=== PATIENT | female | born 1970 | race Caucasian/White ===

== ENCOUNTER 2019-11-14 14:00 | Outpatient (RCR) | payer OTHER, SELFPAY ==
--- NOTE | 2019-10-18 09:18 | PTOPEVAL ---
PHYSICAL THERAPY EVALUATION AND PLAN OF CARE 10-18-2019 The PT evaluation was completed for the diagnosis of low back pain, radicular into R LE. Her plan of treatment is for 2x/week for 2 weeks. Thank you for referring Mrs. Astorga to [facility]. Please review, sign, date and return this plan of care SANA. I agree with and certify that the following plan of care is medically necessary. Referring Physician Date Referring Provider: Dr. Ed Friedman *PT Outpatient Evaluation Start: 10/18/19 08:15 Document 10/18/19 08:15 NILAM (Rec: 10/18/19 09:14 NILAM [id number]) Outpatient Past Medical History Neurological History Hx Neurological Disorders No Significant History Cardiovascular History Hx Cardiac Disorders No Significant History Respiratory History Hx Respiratory Disorders No Significant History Gastrointestinal History Hx Gastrointestinal Disorders No Significant History Genitourinary History Hx Genitourinary Disorders No Significant History Musculoskeletal History Hx Back Pain Yes: this incident of LBP Hx Other Musculoskeletal Disorders Yes: B knees ache and cramp intermittent Hematological History Hx Hematological Disorders No Significant History Endocrine History Hx Endocrine Disorders No Significant History HEENT History Hx HEENT Disorders No Significant History Integumentary History Hx Skin Disorders No Significant History Evaluation Information Problem Diagnosis low back pain Onset 06-22-19 Subjective Information injury when working at Query Text:As Reported By Patient/ hospital, rolling heavy care Family pt to clean her and onset of back pain; since injury- had 3 cortisone injections-helped some; initially had PT at another facility--had elec stim, exercises; have continued to do stretching exercises at home; thought pulled piriformis ; returned to work, end August with restrictions no lifting over 15#- perform computer work- sit/stand, 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
--- NOTE | 2019-11-05 14:37 | PCPTNOTE ---
pt did not show for today's reeval;
--- NOTE | 2019-11-14 14:36 | PTOPEVAL ---
PHYSICAL THERAPY DISCHARGE 11-14-2019 Ms. Astorga has received 4 Physical Therapy sessions, from October 17 to today, for the diagnosis of lumbar strain and radiculopathy. Compared to the initial evaluation: she has improved with: less pain rating; no longer has radicular pain; Oswestry self assessment improved 24%; increased reported activity tolerance with home and work tasks; standing posture with equal WB on LE's; lumbar and hip strength; trunk flexibility without pain and independent with her home exercises. All of the goals were met except amount of weight lifted with the floor/waist lift. She has changed job positions, and is now doing a less physically demanding job. Thank you for referring Jolly Astorga to [facility]. Please review, sign, date and return this discharge SANA. I agree with and certify that the following plan of care is medically necessary. Referring Physician Date Referring Provider: Dr. Ed Friedman *PT Outpatient Evaluation Start: 10/18/19 08:15 Freq: Status: Active Protocol: Document 11/14/19 14:09 NILAM (Rec: 11/14/19 14:35 NILAM [id number]) Subjective Information Jolly reports: back is much Query Text:As Reported By Patient/ better- no shooting pain down Family leg or burning hip pain, can vacuum and do more at home; continuing to do stretching and exercises at home; agree to discharge from PT; dr garcia was rescheduled and to have video conference next week; Pain Assessment Timing of Pain Assessment Timing of Pain Assessment Assessment Pain Scale Pain Scale Used Numeric (1 - 10) Self Report Pain Assessment Bilateral Back Reported Pain Level 0 Pain Frequency Acute Other Pain Description R low back Lowest Pain Intensity 0 Greatest Pain Intensity 1 Other Pain Aggravating Factors standing 15 min,laundry-lift/ carry laundry basket; lean forward; sit 20 min Additional Pain Comments am doing much better; Pain Score Pain Score 0: Self Report Cervical and Lumbar ROM Lumbar ROM Lumbar Comments standing with equal WB on LEs' ; trunk flex-hands to floor, no incr pain; extension little pull, not really pain; Cervical and Lumbar Muscle Testing Lumbar Strength Lumbar Functional Strength Comments prone hip ext R and L x 20 reps no increase pain; pray stretch without an increase pain; B UE Max Lift floor/waist 30# with good technique; st
== END 2019-11-15 09:26 | disposition home or self-care (01) ==
LOC: ANHPT 14:00
PROVIDERS: PCP Internal Medicine
DX: S39.012D Strain of muscle, fascia and tendon of lower back, subsequent encounter (principal); M54.16 Radiculopathy, lumbar region; R20.2 Paresthesia of skin
CPT/HCPCS: 97012; 97110; 97161

== ENCOUNTER 2020-05-21 07:08 | Outpatient (CLI) | payer OTHER, SELFPAY ==
[2020-05-21 07:52] LABS: Potassium 4.3 mmol/L (3.4-5.0)
[2020-05-21 08:04] LABS: LDL Cholesterol Direct 85 mg/dL
[2020-05-21 08:11] LABS: Alanine Aminotransferase 17 U/L (4-35); Albumin Level 4.2 g/dL (3.5-5.1); Alkaline Phosphatase 58 U/L (38-126); Anion Gap 8 mmol/L (8-16); Aspartate Amino Transferase 20 U/L (14-36); Bilirubin,Total 0.5 mg/dL (0.2-1.3); Blood Urea Nitrogen 19 mg/dL (7-17); Calcium 9.4 mg/dL (8.4-10.2); Carbon Dioxide 30 mmol/L (22-30); Chloride 104 mmol/L (98-107); Cholesterol 177 mg/dL (0-200); Estimated Glomerular Filt Rate > 60; Glucose 98 mg/dL (65-105); HDL Direct 60 mg/dL; Sodium 142 mmol/L (137-145); Triglycerides 136 mg/dL (<150)
== END 2020-05-21 07:09 | disposition home or self-care (01) ==
LOC: ANHLAB 07:10
PROVIDERS: Visit Provider Physician Assistant
DX: Z13.1 Encounter for screening for diabetes mellitus (principal); Z13.220 Encounter for screening for lipoid disorders
CPT/HCPCS: 36415; 80053; 80061

== ENCOUNTER 2021-10-05 15:29 | Outpatient (CLI) | payer OTHER, SELFPAY ==
--- NOTE | ~2021-10-05 | MM_ITS ---
EXAMINATION: MM screening [facility] BI w bo HISTORY: Screening mammogram TECHNIQUE: Craniocaudal and mediolateral oblique 3-D tomosynthesis images were obtained and synthetic 2-D images were generated. CAD analysis was submitted and interpreted. COMPARISON: 11/07/2018, 09/13/2017, 09/06/2016 BREAST PARENCHYMAL COMPOSITION: The breasts are heterogeneously dense, which may obscure small masses . FINDINGS: There is no evidence of suspicious mass, calcification, or architectural distortion to sugg est malignancy in either breast. There has been no suspicious interval change. IMPRESSION: 1. No mammographic evidence of malignancy. 2. Recommend routine screening mammography in one year. BI-RADS Category 1: Negative Reviewed, dictated and finalized at location [employer]. [employer]
== END 2021-10-05 15:30 | disposition home or self-care (01) ==
PROVIDERS: PCP Family Medicine; Visit Provider Student in an Organized Health Care Education/Training Program
DX: Z12.31 Encounter for screening mammogram for malignant neoplasm of breast (principal)
CPT/HCPCS: 77063; 77067

== ENCOUNTER 2021-10-19 00:55 | Day surgery (SDC) | payer OTHER, SELFPAY ==
[2021-10-08 13:26] VITALS: BMI 29.9
[2021-10-19 08:21] VITALS: BP 133/93; PULSE 85; RESP 16; TEMP 36; O2SAT 99
[2021-10-19] MEDS: LACTATED RINGERS 1,000 ML 150 ML IV CONT (08:25)
--- NOTE | 2021-10-19 09:11 | PM.HPGS ---
History of Present Illness History of Present Illness Consent: Risks, benefits, and alternatives have been discussed and questions answered. Patient agrees to proceed with procedure. Chief complaint: neoplasm screening Narrative: Jolly Astorga is a 51 year old female here for first screening colonoscopy Review of Systems Constitutional: Constitutional: Denies headache(s) and Denies weakness Eyes: Eyes: Denies blurry vision ENT: Reports Normal hearing present, Denies headache(s) and Denies neck pain Cardiovascular: Cardiovascular: Denies chest pain and Denies dyspnea Respiratory: Respiratory: Denies dyspnea Gastrointestinal: Gastrointestinal: Reports no additional gastrointestinal complaints Genitourinary: Genitourinary: Denies dysuria Musculoskeletal: Musculoskeletal: Denies neck pain Integumentary/Breasts: Skin/Breast: Denies dry skin Neurologic: Reports Normal hearing present, Denies headache(s) and Denies weakness Psychiatric: Psychiatric: Denies anxiety Endocrine: Endocrine: Denies change in body appearance Hematologic/Lymphatic: Hematologic/Lymphatic: Denies easy bleeding Allergic/Immunologic: Allergic/Immunologic: Denies urticaria [facility] Past Medical History Medical History (Updated 10/19/21 @ 09:11 by Raymundo Brizuela MD) Colon cancer screening Vaginal delivery x 3 Surgical History Surgical History History of tubal ligation Family History Family History Father Family history of diabetes mellitus in first degree relative Hypertension Hyperlipidemia Mother Family history of lupus erythematosus Social History Social History Smoking status: Never smoker Second hand tobacco smoke exposure: No Alcohol intake: current Drinks per week: 3 Alcohol use details: socially Substance use: never Substance use type: does not use Living arrangements: alone Spiritual care concerns: No Meds Home Medications and Allergies Home Medications Medication Instructions Recorded Confirmed Type alprazolam 0.5 mg tablet 0.5 mg PO TID PRN #90 tablet 08/25/21 10/19/21 Rx Allergies Allergy/AdvReac Type Severity Reaction Status Date / Time No Known Allergies Allergy Unknown Verified 10/19/21 08:20 Vital Signs Vital Signs - 24 hr 10/19/21 08:21 Temperature 96.8 F L Pulse Rate 85 Respiratory Rate 16 Blood Pressure 133/93 H Pulse Oximetry 99 Exam Const: General: comfortable and no acute distress HENMT: General nose exam: Normal nares present Eyes: General: appearance normal, both eyes and all related structures Neck: Neck: no JVD Resp: Auscultation: clear to auscultation bilaterally Cardio: Rate: regular rate Rhythm: regular rhythm GI: Inspection: non-distended GI Palp: Yes Soft to palpation Skin: General skin exam: normal color Neuro: General: gait normal Speech: normal speech Extrem: General: normal to inspection Psych: Mental Status: mental status grossly normal Assessment and Plan Assessment and plan (1) Colon cancer screening: Code(s): Z12.11 - Encounter for screening for malignant neoplasm of colon Status: Acute Assessment and Plan: colonoscopy
[2021-10-19 09:35] VITALS: BP 115/79; PULSE 71; RESP 22; O2SAT 100
[2021-10-19 09:45] VITALS: BP 119/69; PULSE 70; RESP 18; O2SAT 100
[2021-10-19 09:55] VITALS: BP 126/93; PULSE 66; RESP 20; O2SAT 100
== END 2021-10-19 10:04 | disposition home or self-care (01) ==
PROVIDERS: PCP Family Medicine; Visit Provider Internal Medicine Gastroenterology
PROC: 0DJD8ZZ Inspection of Lower Intestinal Tract, Via Natural or Artificial Opening Endoscopic (ICD-10-PCS; CPT 45378; principal; 2021-10-19 09:30)
DX: Z12.11 Encounter for screening for malignant neoplasm of colon (principal); K57.30 Diverticulosis of large intestine without perforation or abscess without bleeding; K64.8 Other hemorrhoids; K64.4 Residual hemorrhoidal skin tags
CPT/HCPCS: 45378; J7120